=== PATIENT | female | born 1960 | race Caucasian/White ===

== ENCOUNTER 2018-01-11 22:07 | Emergency (ER) | payer BC ==
[~2018-01-11] VITALS: Ht 170.2 cm; Wt 178.1 kg
[2018-01-11 22:11] VITALS: BP 135/79
[2018-01-11] MEDS ORDERED: LIDOcaine 1% 30ml preserv. free vial IJ ONE (22:50)
[2018-01-11] MEDS ORDERED: ondansetron 4mg rapidly disintigrating tab PO ONE (22:50)
[2018-01-11] MEDS ORDERED: HYDROcodone/acetaminophen 10/325mg tab PO ONE (22:50)
[2018-01-11] MEDS ORDERED: TETanus/Pertussis (Acell)/Diphther VAC/PF (Tdap-Adult) 0.5ml syringe IM ONE (22:50)
== END 2018-01-12 00:06 | disposition home or self-care (01) ==
LOC: ER 22:07
DX: S61.213A Laceration without foreign body of left middle finger without damage to nail, initial encounter (principal); Z88.2 Allergy status to sulfonamides; Z88.8 Allergy status to other drugs, medicaments and biological substances; W26.8XXA Contact with other sharp object(s), not elsewhere classified, initial encounter; Y93.89 Activity, other specified; Y92.89 Other specified places as the place of occurrence of the external cause; Y99.8 Other external cause status
CPT/HCPCS: 12001; 90471; 90715; 99283; A6449; J3490